=== PATIENT | female | born 1945 ===

== ENCOUNTER 2021-01-31 14:38 | Inpatient (IN) | payer MEDICARE, BC ==
[~2021-01-31] VITALS: Ht 154.9 cm; Wt 62.1 kg
[2021-02-03 16:00] VITALS: BP 126/54
[2021-02-03] MEDS ORDERED: CYCL5TAB PO (17:15)
[2021-02-03] MEDS ORDERED: DIAZ5TAB PO (17:22)
[2021-02-03] MEDS ORDERED: ZOLP10TA2 PO (17:22)
[2021-02-03] MEDS ORDERED: EZET1TAB27 PO (17:22)
[2021-02-03] MEDS ORDERED: Medication Not On Formulary EA (Cyclobenzaprine Hcl 10 MG) PO SCH (18:15)
[2021-02-03] MEDS ORDERED: DIAZEPAM 5 MG TABLET PO PRN (18:15)
--- NOTE | 2021-02-03 18:29 | NUR ---
Patient admitted from [facility] status post surgery of L3-L4 decompression, and L4-L5 fusion, patient is alert, oriented x4, verbally responsive, no sob, resp even nonlabored, skin warm and dry to touch, no acute distress noted, stable condition, Suárez catheter intact, patient still on clear liquid diet, passing gas, speaks angolan, daughter is at bedside to translate. meds verified with dr sullivan.
[2021-02-03] MEDS ORDERED: CYCLOBENZAPRINE HCL 10 MG TABLET PO PRN (18:30)
[2021-02-03] MEDS: SIMVASTATIN 20 MG TABLET PO SCH (18:41)
[2021-02-03] MEDS ORDERED: SHARK LIVER OIL/PETROLAT OINT 60 GM TUBE RC PRN (19:45)
[2021-02-03 20:28] VITALS: BP 130/50
[2021-02-03] MEDS: ACETAMINOPHEN 325 MG TABLET PO SCH (20:49)
[2021-02-03] MEDS: ZOLPIDEM 5 MG TABLET PO SCH (20:49)
[2021-02-03] MEDS ORDERED: Medication Not On Formulary EA (Zolpidem Tartrate (Ambien) 10 MG) PO SCH (21:00)
[2021-02-04 04:45] VITALS: BP 121/52
[2021-02-04 04:46] VITALS: BP 121/52
[2021-02-04] MEDS: ACETAMINOPHEN 325 MG TABLET PO SCH ×3 (05:32→21:04)
[2021-02-04 06:46] LABS: BASOPHILS % (AUTO) 0.4 % (0.0-2.0); EOSINOPHILS # (AUTO) 0.1 K/uL (0.0-0.7); EOSINOPHILS % (AUTO) 2.6 % (0.0-7.0); HEMATOCRIT 24.6 % (31.2-41.9); HEMOGLOBIN 8.4 g/dL (10.9-14.3); LYMPHOCYTES # (AUTO) 0.7 K/uL (20.0-40.0); LYMPHOCYTES % (AUTO) 13.8 % (20.5-51.5); MEAN CORPUSCULAR HEMOGLOBIN 31.1 uug (24.7-32.8); MEAN CORPUSCULAR HGB CONC 34 g/dL (32.3-35.6); MEAN CORPUSCULAR VOLUME 91.4 fL (75.5-95.3); MONOCYTES # (AUTO) 0.6 K/uL (2.0-10.0); MONOCYTES % (AUTO) 10.5 % (0.0-11.0); NEUTROPHILS # (AUTO) 3.9 K/uL (1.8-8.9); NEUTROPHILS % (AUTO) 72.7 % (38.5-71.5); PLATELET COUNT (AUTO) 269 K/uL (179-408); RED BLOOD CELL COUNT(AUTO) 2.69 MIL/uL (3.63-4.92); WHITE BLOOD COUNT (AUTO) 5.4 K/uL (3.8-11.8)
[2021-02-04 06:57] LABS: CARBON DIOXIDE 21 mmol/L (21-32); CHLORIDE 106 mmol/L (98-107); CREATININE 0.4 mg/dL (0.6-1.3); GLUCOSE 76 mg/dL (74-106); POTASSIUM 3.6 mmol/L (3.5-5.1)
[2021-02-04 07:15] LABS: UREA NITROGEN, BLOOD 7 mg/dL (7-18)
[2021-02-04 08:00] VITALS: BP 129/53
--- NOTE | 2021-02-04 08:00 | NUR ---
PATIENT IN BED A/O X4,ABLE TO COMMUNICATE NEEDS, SPEAKS SOME NIGERIAN, V/S STABLE, SATURATING 97% IN RA. NO S/S OF ANY DISTRESS NOTED. DRESSING ON BACK CLEAN AND INTACT, NO BLEEDING OR ANY DRAINAGE NOTED,WILL CONTINUE MONITORING SITE.
[2021-02-04] MEDS ORDERED: SIMVASTATIN PO SCH (09:00)
[2021-02-04] MEDS ORDERED: EZETIMIBE PO SCH (09:00)
[2021-02-04] MEDS: EZETIMIBE 10 MG TABLET PO SCH (09:33)
[2021-02-04 14:00] VITALS: BP 105/48
[2021-02-04] MEDS: SIMVASTATIN 20 MG TABLET PO SCH (17:04)
--- NOTE | 2021-02-04 17:36 | NUR ---
PATIENT CONTINUES IN BED, PARTICIPATED WITH PT , WAS ABLE TO WALK WITH WALKER , NO C/O PAIN AT THIS MOMENT. DAUGHTER AT BED SIDE.
[2021-02-04 20:00] VITALS: BP 135/57
[2021-02-04] MEDS: ZOLPIDEM 5 MG TABLET PO SCH (20:55)
--- NOTE | 2021-02-05 00:47 | NUR ---
AAOx2-3 with periods of forgetfulness at times. Patient speaks Sri Lankan, but was able to communicate little bit Maori. Able to make needs known. Patient had spinal fusion to L3-L4 (5/3) lower dressing clean dry and intact. Suárez catheter intact draining yellow urine. I & O monitor. Compliant with meds. Tolerated po meds well. Denies any pain nor any discomfort. Fall precautions maintained. Siderails up for safety. Call chang within reach.
[2021-02-05 04:15] VITALS: BP 120/58
[2021-02-05] MEDS: ACETAMINOPHEN 325 MG TABLET PO SCH ×3 (06:04→23:06)
--- NOTE | 2021-02-05 06:21 | NUR ---
End of shift notes: Slept well throughout the night. All needs attended and met. Suárez catheter draining yellow urine. Patient incontinent of BM x1. Kept clean and dry. No acute distress noted. VSS.
[2021-02-05 08:00] VITALS: BP 133/56
[2021-02-05] MEDS: EZETIMIBE 10 MG TABLET PO SCH (09:48)
--- NOTE | 2021-02-05 14:55 | NUR ---
INTERDISCIPLINARY TEAM CONFERENCE
[2021-02-05 16:40] VITALS: BP 122/57
--- NOTE | 2021-02-05 16:46 | NUR ---
Pt transfer from room 311 to 327, belongings accounted for. Daughter Thi at bedside, nursing care discussed with pt and daughter. Pt in no acute distress, A&Ox4, able to make needs known. VSS. Dressing on back C/D/I, no signs of bleeding noted. Suárez catheter intact, draining yellow urine. Due medications given per order, no a/r noted. Pt denies pain/discomfort at this time. Pt participated with physical therapy today, tolerated well, LSO brace on when OOB. Safety measures and fall precautions maintained. Call light in reach. Continue to monitor.
[2021-02-05] MEDS: SIMVASTATIN 20 MG TABLET PO SCH (18:02)
--- NOTE | 2021-02-05 19:49 | NUR ---
Daughter at bedside, reported that she put pt's medication from home, Climara 0.5 mg transdermal patch for hormonal therapy on pt's abdomen. MD made aware. Will endorse care to modular home crew member nurse.
--- NOTE | 2021-02-05 20:00 | NUR ---
Pharmacy ([facility]) called to inform nurse that Climara is not carried by the hospital, advised nurse to have family bring her own meds. Patient's daughter Estelita made aware and since its been given every week, she'll bring medication next Wednesday for the next dose. Will endorse.
--- NOTE | 2021-02-05 20:30 | NUR ---
Pharmacy called requesting to send patient medication down to pharmacy, patient daughter Estelita made aware. Charge nurse brought said medication down to pharmacy as requested.
[2021-02-05 20:40] VITALS: BP 128/59
[2021-02-05] MEDS: ZOLPIDEM 5 MG TABLET PO SCH (20:42)
[2021-02-06 01:54] VITALS: BP_DIAS 98
[2021-02-06 04:45] VITALS: BP 114/56
[2021-02-06 05:14] VITALS: BP 114/56
[2021-02-06] MEDS: ACETAMINOPHEN 325 MG TABLET PO SCH ×3 (05:36→21:05)
--- NOTE | 2021-02-06 06:31 | NUR ---
Shift End Report: Vs stable. Slept well. No complaint presented all night. All needs attended and met. No significant event reported. Continue current rehab plan of care.
[2021-02-06 07:40] VITALS: BP 121/48
[2021-02-06] MEDS: EZETIMIBE 10 MG TABLET PO SCH (08:15)
--- NOTE | 2021-02-06 14:59 | NUR ---
INDIVIDUALIZED PLAN OF CARE
[2021-02-06 16:06] VITALS: BP 117/45
[2021-02-06] MEDS: SIMVASTATIN 20 MG TABLET PO SCH (17:03)
--- NOTE | 2021-02-06 18:09 | NUR ---
EOSS: No significant acute changes during this shift. No changes in LOC, A/Ox4 verbally responsive and able to make needs known. Afebrile. Participated with PT. Lower back dressing (gauze secured with tegaderm) C/D/I. LSO brace applied to pt. Tylenol given for mild pain and effective. All due medications given as ordered and tolerated well. All pt. needs attended and met. Safety measures in place. Call light and all frequently used items within pt. reach. Will endorse to oncoming shift.
[2021-02-06 20:40] VITALS: BP 120/57
[2021-02-06] MEDS: ZOLPIDEM 5 MG TABLET PO SCH (20:51)
[2021-02-07 04:45] VITALS: BP 110/54
[2021-02-07] MEDS: ACETAMINOPHEN 325 MG TABLET PO SCH ×3 (06:14→21:07)
--- NOTE | 2021-02-07 06:55 | NUR ---
Patient resting in bed. VSS. Slept well. Denies pain and discomfort at this time. All needs attended and met. Continue current rehab plan of care.
[2021-02-07 08:00] VITALS: BP 115/45
[2021-02-07] MEDS: OXYCODONE HCL 5 MG TABLET PO PRN (08:53)
[2021-02-07] MEDS: EZETIMIBE 10 MG TABLET PO SCH (08:54)
[2021-02-07 16:00] VITALS: BP 110/56
[2021-02-07] MEDS: SIMVASTATIN 20 MG TABLET PO SCH (17:01)
[2021-02-07 20:14] VITALS: BP 118/58
[2021-02-07] MEDS: ZOLPIDEM 5 MG TABLET PO SCH (20:57)
--- NOTE | 2021-02-07 21:21 | NUR ---
Received pt resting in bed. AAO x4. Pt's visitor was at bedside. No acute distress noted. C/o mild pain on the lower back, routine tylenol and other due meds given as ordered. Suárez catheter draining well with yellow colored urine. Safety measures maintained. Call light and personal items within reach. Will continue to monitor.
[2021-02-08 04:44] VITALS: BP 100/42
[2021-02-08] MEDS: ACETAMINOPHEN 325 MG TABLET PO SCH ×3 (06:00→21:07)
[2021-02-08 08:00] VITALS: BP 108/37
[2021-02-08] MEDS: EZETIMIBE 10 MG TABLET PO SCH (08:53)
[2021-02-08] MEDS: OXYCODONE HCL 5 MG TABLET PO PRN (08:57)
[2021-02-08 17:05] VITALS: BP 106/40
[2021-02-08] MEDS: SIMVASTATIN 20 MG TABLET PO SCH (17:32)
[2021-02-08 20:00] VITALS: BP 113/51
[2021-02-08] MEDS ORDERED: MIRALAX 17 GM POWD.PACK PO PRN (20:00)
[2021-02-08] MEDS: ZOLPIDEM 5 MG TABLET PO SCH (21:02)
--- NOTE | 2021-02-08 21:40 | NUR ---
Received pt resting in bed. AAO x4. Daughter at bedside. No acute distress noted. Due meds given as ordered. Suárez catheter draining well with yellow colored urine. Turned and repositioned. Both heels offloaded. Safety measures maintained. Call light and personal items within reach. Will continue to monitor.
[2021-02-09 04:57] VITALS: BP 100/44
[2021-02-09] MEDS: ACETAMINOPHEN 325 MG TABLET PO SCH ×3 (05:49→21:31)
[2021-02-09 07:58] VITALS: BP 112/40
[2021-02-09] MEDS: EZETIMIBE 10 MG TABLET PO SCH (08:29)
[2021-02-09] MEDS: OXYCODONE HCL 5 MG TABLET PO PRN (08:31)
--- NOTE | 2021-02-09 12:34 | NUR ---
Patient seen and examined by Dr. Mcleod, update given to . Ordered to increase frequency of Miralax Q6hrs PRN. Followed up with if Suárez catheter can be taken out but said not to remove and MD will follow up with the neurosurgeon about it. Addendum: 02/09/21 at 1258 by TNOO CALLOWAY RN RN correction: ordered to increase Miralax frequency to BID PRN.
[2021-02-09] MEDS ORDERED: MIRALAX 17 GM POWD.PACK PO PRN (12:45)
[2021-02-09] MEDS: MIRALAX 17 GM POWD.PACK PO PRN (14:04)
[2021-02-09 15:37] VITALS: BP 106/41
[2021-02-09] MEDS: SIMVASTATIN 20 MG TABLET PO SCH (17:04)
[2021-02-09 20:36] VITALS: BP 109/56
[2021-02-09] MEDS: ZOLPIDEM 5 MG TABLET PO SCH (21:31)
[2021-02-10 04:38] VITALS: BP 101/45
[2021-02-10] MEDS: ACETAMINOPHEN 325 MG TABLET PO SCH ×3 (06:20→21:07)
[2021-02-10] MEDS: MIRALAX 17 GM POWD.PACK PO PRN (06:26)
--- NOTE | 2021-02-10 06:26 | NUR ---
Pt slept comfortably t/o the night. No acute distress noted. Due meds given as ordered. Miralax PRN given for constipation, pt also drinking prune juice. Suárez catheter, draining well with yellow colored urine. Safety measures maintained. Will endorse accordingly.
[2021-02-10 08:05] VITALS: BP 99/44
[2021-02-10] MEDS: EZETIMIBE 10 MG TABLET PO SCH (09:33)
[2021-02-10 15:46] VITALS: BP 108/50
[2021-02-10] MEDS ORDERED: BISACODYL 10 MG SUPP.RECT RC ONE (18:15)
[2021-02-10] MEDS: SIMVASTATIN 20 MG TABLET PO SCH (18:32)
--- NOTE | 2021-02-10 19:15 | NUR ---
In the bathroom, assisted by her daughter. Reminded outgoing nurse about her Dulcolax supp. given rectally as needed and ordered. Will monitor effect. Assisted back to bed by her daughter. Safety measures and fall prevention maintained.
[2021-02-10 20:16] VITALS: BP 104/54
[2021-02-10] MEDS: ZOLPIDEM 5 MG TABLET PO SCH (21:05)
[2021-02-11 04:49] VITALS: BP 98/36
[2021-02-11] MEDS: ACETAMINOPHEN 325 MG TABLET PO SCH ×3 (06:14→21:36)
--- NOTE | 2021-02-11 06:39 | NUR ---
Shift End Report: VSS. Slept well. No complaint presented. All needs attended and met. No significant event reported all night. Continue current rehab plan of care.
[2021-02-11 07:39] VITALS: BP 108/39
[2021-02-11] MEDS: EZETIMIBE 10 MG TABLET PO SCH (08:44)
--- NOTE | 2021-02-11 12:00 | NUR ---
Urine in jaffe catheter noted with cloudy appearance. Dr. Hickman made aware, new orders in place.
--- NOTE | 2021-02-11 13:13 | NUR ---
Called surgeon team Constance Bermudez office [phone] to verify if pt's dressing can be changed. Pt still has the original dressing on her s/p lumbar area procedure. Spoke with [place] security control room officer to notify Constance Bermudez today. Neurosurgery team to call back here at [facility] [phone] to speak with nursing if the original dressing can be changed or any other precautions needs to be implemented.
--- NOTE | 2021-02-11 13:53 | NUR ---
WOUND CARE CONSULT: PT SEEN PER REQUEST OF NURSING STAFF FOR LUMBAR SURGICAL DRESSING, PRESENT ON ADMISSION. DRESSING IS DRY AND INTACT. MSG LEFT BY [employer]ODUCE [employer]ODUCTION TEAM MEMBER TO SURGICAL TEAM TO FIND OUT IF DRESSING WILL BE CHANGED IN REHAB UNIT. DISCUSSED WITH NURSING STAFF. PT'S FAMILY TO MAKE APPT FOR FOLLOW UP WITH NEUROSURGEON. WILL SEE PRN.
[2021-02-11 15:40] VITALS: BP 98/60
[2021-02-11 16:48] LABS: *BILIRUBIN,URIN NEGATIVE (NEGATIVE); *BLOOD, URINE 2+ (NEGATIVE); *COLOR,URINE YELLOW (YELLOW); *KETONES,URINE NEGATIVE (NEGATIVE); *UROBILINOGEN,URINE 0.2 E.U./dl (NORMAL); LEUKOCYTE ESTERASE ,URINE 1+ (NEGATIVE); NITRITE, URINE POSITIVE (NEGATIVE); PH,URINE 6.5 (5.0-8.0); UGLUCOSE NEGATIVE (NEGATIVE)
[2021-02-11 16:56] LABS: *CLARITY,URINE SLIGHTLY CLOUDY (CLEAR)
[2021-02-11] MEDS: SIMVASTATIN 20 MG TABLET PO SCH (17:13)
--- NOTE | 2021-02-11 18:14 | NUR ---
End of shift note: Pt in bed, no acute distress, all needs met at this time. VSS. Pt denies pain at this time. Due medications given per order, no a/r noted. Pt received shower today with OT. Message left for pt's surgical team by leather splitter regarding lumbar dressing. Pt assisted safely to from chair to bed, LSO brace in place when OOB. Pt stated 1 BM last night after suppository. UA results back, Dr. Hickman made aware, message left for Dr. Mcleod. Suárez catheter discontinued at 1720, no void noted at this time. Pt's Nirav and daughter Thi at bedside, nursing care discussed with pt and family. Safety measures, fall precautions in place. Call light and belongings within reach. Will endorse care to production broacher nurse.
[2021-02-11 19:59] VITALS: BP 120/49
[2021-02-11] MEDS: ZOLPIDEM 5 MG TABLET PO SCH (21:36)
[2021-02-11 22:27] LABS: BACTERIA,URINE MANY /HPF (NONE SEEN); RBC,URINE TNTC /HPF (0-3); WBC,URINE TNTC /HPF (0-3)
[2021-02-11 22:28] LABS: SQUAMOUS EPITHELIAL CELL,UR NONE SEEN /HPF (NONE SEEN)
--- NOTE | 2021-02-12 04:31 | NUR ---
AAOx4 OOB to the BR with walker with supervision. TLSO brace when OOB. Voiding well without any difficulty. Attended to needs.Compliant with meds. No acute distress noted. VSS.
[2021-02-12 04:57] VITALS: BP 110/41
[2021-02-12] MEDS: ACETAMINOPHEN 325 MG TABLET PO SCH ×3 (05:48→21:08)
--- NOTE | 2021-02-12 06:52 | NUR ---
End of shift notes: Slept well throughout the night. OOB to the BR with assist. Voiding well. All needs attended and met. No complaints presented during shift.
[2021-02-12 08:00] VITALS: BP 100/45
[2021-02-12] MEDS ORDERED: HOME MED MISCELLANEOUS TP PRN (08:00)
[2021-02-12] MEDS: EZETIMIBE 10 MG TABLET PO SCH (08:43)
[2021-02-12] MEDS: CEphaleXIN 250 MG CAPSULE PO SCH ×3 (08:43→21:09)
[2021-02-12] MEDS ORDERED: ZINC OXIDE TP PRN (08:45)
[2021-02-12] MEDS ORDERED: COD LIVER OIL/ZINC OXIDE OINT 113 GM TUBE TP PRN (08:45)
[2021-02-12] MEDS ORDERED: [UNRECOGNIZED DRUG - OTHER] TOP SCH (09:00)
[2021-02-12] MEDS ORDERED: ESTRADIOL 0.05 MG TOP SCH (09:00)
--- NOTE | 2021-02-12 10:42 | NUR ---
Spoke with pt's surgery team at [facility], . Braham [place] spoke with KAMARI Bermudez, who relayed the message that the pt's dressing may be changed. made aware. Wound care consult in place.
--- NOTE | 2021-02-12 12:02 | NUR ---
WOUND CARE CONSULT/FOLLOW UP: RECEIVED CONSULT TO CHECK LUMBAR INCISION. DRESSING CHANGE ORDER RECEIVED BY RN FROM NEUROSURGERY N.P. INCISION NOTED TO BE CLEAR WITH SOME SUTURES NOTED, NO ERYTHEMA, NO DRAINAGE, NO ODOR OR TENDERNESS. BORDERGAUZE DRESSING PLACED. PT TOLERATED WELL. WILL SEE PRN.
--- NOTE | 2021-02-12 14:26 | NUR ---
INTERDISCIPLINARY TEAM CONFERENCE
[2021-02-12 16:18] VITALS: BP 103/42
[2021-02-12] MEDS: SIMVASTATIN 20 MG TABLET PO SCH (19:05)
--- NOTE | 2021-02-12 19:11 | NUR ---
End of shift note: Pt ambulating safely to restroom using FWW with daughter at bedside, LSO brace in place. Pt voided freely in toilet today. All needs met at this time. VSS. Pt denies pain/discomfort. Due medications given per order, no a/r noted. Lumbar incision C/D/I, well approximated, no s/s of infection. Dressing changed per order with wound care nurse at bedside, photo taken. Dr. Mcleod aware of pt's UA results, new order in place. Safety measures, fall precautions in place. Call light and belongings within reach. Will endorse care to overnight stocker nurse.
--- NOTE | 2021-02-12 19:40 | NUR ---
Received pt sitting in bed, verbally responsive, able to make needs known. Denies any pain or discomfort, no s/s of acute distress. Pt with back brace on. Safety measures initiated, call light within reach, will continue to monitor.
[2021-02-12 20:00] VITALS: BP 108/37
[2021-02-12] MEDS: ZOLPIDEM 5 MG TABLET PO SCH (21:09)
[2021-02-13 04:00] VITALS: BP 97/40
[2021-02-13] MEDS: CEphaleXIN 250 MG CAPSULE PO SCH ×3 (05:20→21:05)
[2021-02-13] MEDS: ACETAMINOPHEN 325 MG TABLET PO SCH ×3 (05:20→21:05)
--- NOTE | 2021-02-13 06:19 | NUR ---
No acute distress noted the whole shift. Slept through the night. Tolerated medications well. All needs attended and met. Bed locked and in low position, side rails up, call light within reach.
[2021-02-13 06:38] LABS: BASOPHILS % (AUTO) 0.6 % (0.0-2.0); EOSINOPHILS # (AUTO) 0.1 K/uL (0.0-0.7); EOSINOPHILS % (AUTO) 1.7 % (0.0-7.0); HEMATOCRIT 25.8 % (31.2-41.9); HEMOGLOBIN 8.8 g/dL (10.9-14.3); LYMPHOCYTES # (AUTO) 0.9 K/uL (20.0-40.0); MEAN CORPUSCULAR HEMOGLOBIN 30.9 uug (24.7-32.8); MEAN CORPUSCULAR HGB CONC 34 g/dL (32.3-35.6); MEAN CORPUSCULAR VOLUME 90.9 fL (75.5-95.3); MONOCYTES # (AUTO) 0.5 K/uL (2.0-10.0); MONOCYTES % (AUTO) 7.6 % (0.0-11.0); NEUTROPHILS % (AUTO) 76.1 % (38.5-71.5); PLATELET COUNT (AUTO) 423 K/uL (179-408); RED BLOOD CELL COUNT(AUTO) 2.84 MIL/uL (3.63-4.92); WHITE BLOOD COUNT (AUTO) 6.6 K/uL (3.8-11.8)
[2021-02-13 07:06] LABS: BILIRUBIN,TOTAL 0.4 mg/dL (0.2-1.0); CREATININE 0.7 mg/dL (0.6-1.3); MAGNESIUM 2.3 mg/dL (1.8-2.4); PHOSPHOROUS 3.8 mg/dL (2.5-4.9); POTASSIUM 3.9 mmol/L (3.5-5.1); TOTAL PROTEIN, SERUM 6.4 g/dL (6.4-8.2)
[2021-02-13 08:13] VITALS: BP 102/42
[2021-02-13] MEDS: EZETIMIBE 10 MG TABLET PO SCH (08:29)
--- NOTE | 2021-02-13 13:45 | NUR ---
received patient in bed awake, no complains of any pain or discomfort at this time. call light within reach. will continue to monitor.
[2021-02-13] MEDS: SIMVASTATIN 20 MG TABLET PO SCH (17:07)
--- NOTE | 2021-02-13 18:28 | NUR ---
patient awake and alert x4, no complains of any pain or discomfort at this time. call light within reach. will report to oncoming shift.
--- NOTE | 2021-02-13 19:20 | NUR ---
PATIENT ALERT ORIENTED, DAUGHTER AT BEDSIDE, NO COMPLAIN OF PAIN, ASSISTED WITH TOILETING, CALL LIGHT WITHIN REACH. CONT TO MONITOR.
[2021-02-13 20:35] VITALS: BP 101/52
[2021-02-13] MEDS: ZOLPIDEM 5 MG TABLET PO SCH (21:04)
[2021-02-13 21:35] VITALS: BP 107/46
[2021-02-14 04:35] VITALS: BP 107/46
[2021-02-14] MEDS: ACETAMINOPHEN 325 MG TABLET PO SCH ×3 (05:41→21:20)
[2021-02-14] MEDS: CEphaleXIN 250 MG CAPSULE PO SCH ×3 (05:41→21:20)
--- NOTE | 2021-02-14 06:12 | NUR ---
Patient alert oriented, no complain of pain, dressing intact on back, cont to assist with toileting, cont to monitor.
[2021-02-14] MEDS: EZETIMIBE 10 MG TABLET PO SCH (08:12)
[2021-02-14 08:26] VITALS: BP 103/53
[2021-02-14 15:56] VITALS: BP 110/49
[2021-02-14] MEDS: SIMVASTATIN 20 MG TABLET PO SCH (17:00)
--- NOTE | 2021-02-14 18:31 | NUR ---
no changes noted, patient is ambulatory with fww to the bathroom, with stand by assist, no nausea, no vomit, no fever or chills, tolerated PT, OT services well.
[2021-02-14 20:33] VITALS: BP 120/62
[2021-02-14] MEDS: ZOLPIDEM 5 MG TABLET PO SCH (21:20)
--- NOTE | 2021-02-14 21:21 | NUR ---
Patient out of bed walking to the bathroom with walker and back brace. AxOx4, no acute distress noted. VSS. Denies any pain at this time. Lower back incision intact with clear sutures. No redness, drainage noted. Dressing intact. All due medications administered and tolerated well. Needs attended. Kept comfortable. Safety measures maintained.Will continue with plan of care and will monitor throughout the night.
[2021-02-15 04:00] VITALS: BP 107/44
[2021-02-15] MEDS: CEphaleXIN 250 MG CAPSULE PO SCH ×3 (06:36→21:35)
[2021-02-15] MEDS: ACETAMINOPHEN 325 MG TABLET PO SCH ×3 (06:36→21:33)
[2021-02-15 08:00] VITALS: BP 108/49
[2021-02-15] MEDS: EZETIMIBE 10 MG TABLET PO SCH (08:18)
[2021-02-15 15:25] VITALS: BP 101/45
--- NOTE | 2021-02-15 19:25 | NUR ---
no changes noted, patient is ambulatory, independent, alert, oriented x4.
[2021-02-15 20:28] VITALS: BP 118/64
[2021-02-15] MEDS: SIMVASTATIN 20 MG TABLET PO SCH (21:33)
[2021-02-15] MEDS: ZOLPIDEM 5 MG TABLET PO SCH (21:34)
[2021-02-16 04:49] VITALS: BP 106/51
[2021-02-16] MEDS: CEphaleXIN 250 MG CAPSULE PO SCH ×3 (06:29→21:12)
[2021-02-16] MEDS: ACETAMINOPHEN 325 MG TABLET PO SCH ×3 (06:29→21:12)
[2021-02-16 08:46] VITALS: BP 103/47
[2021-02-16] MEDS: EZETIMIBE 10 MG TABLET PO SCH (09:06)
--- NOTE | 2021-02-16 10:00 | NUR ---
Received patient in bed, alert and oriented x 4, denies of any pain, pleasant and cooperative upon assessment, patient wears her back brace at all times when getting out of the bed and when sitting up to eat. Dressing is changed at her back. All needs met promptly. Placed call light within reach.
[2021-02-16 16:15] VITALS: BP 101/48
[2021-02-16 20:28] VITALS: BP 113/48
[2021-02-16] MEDS: SIMVASTATIN 20 MG TABLET PO SCH (21:12)
[2021-02-16] MEDS: ZOLPIDEM 5 MG TABLET PO SCH (21:12)
[2021-02-17 04:48] VITALS: BP 103/55
[2021-02-17] MEDS: CEphaleXIN 250 MG CAPSULE PO SCH ×2 (05:49→13:16)
[2021-02-17] MEDS: ACETAMINOPHEN 325 MG TABLET PO SCH ×2 (05:49→13:16)
[2021-02-17] MEDS: EZETIMIBE 10 MG TABLET PO SCH (08:18)
[2021-02-17 11:23] VITALS: BP 115/51
--- NOTE | 2021-02-17 14:45 | NUR ---
DISCHARGE NOTE: Pt discharged home with [facility], pt aware and willing. Pt to receive DME from [employer]. Pt A&Ox4, no acute distress, VSS. Pt able to ambulate safely with FWW, LSO brace in place. Pt BRP, voided and had 1 BM today. Due medications given per order, no a/r noted. Lumbar incision C/D/I, well approximated, no swelling, s/s of infection, dressing changed. Pt to follow up with Neurosurgeon Dr. Justice. Belongings accounted for, pt denied missing items. TMS provided to pt. ID band removed. Per pt and daughter Thi, pt to follow up with PCP regarding PNA vaccine, already vaccinated for influenza. Assisted pt safely to lobby via WC at 1640. Pt picked up by daughters Thi and María Elena. Instructions provided to pt and family, all verbalized understanding. Pt assisted safely into vehicle.
== END 2021-02-17 14:40 | disposition home or self-care (01) | DRG 560 ==
PROVIDERS: ADMIT Physical Medicine & Rehabilitation Pain Medicine; ATTEND Physical Medicine & Rehabilitation Pain Medicine
DX: Z47.89 Encounter for other orthopedic aftercare (principal); N39.0 Urinary tract infection, site not specified; E78.5 Hyperlipidemia, unspecified; J45.909 Unspecified asthma, uncomplicated; Z98.1 Arthrodesis status; G89.29 Other chronic pain; M43.16 Spondylolisthesis, lumbar region; M48.061 Spinal stenosis, lumbar region without neurogenic claudication; M51.36 Other intervertebral disc degeneration, lumbar region; R20.0 Anesthesia of skin; M54.16 Radiculopathy, lumbar region
CPT/HCPCS: 36415; 83735; 84100; 85025; 87077; 87086; A4663; A9150